=== PATIENT | female | born 1970 | race Two or more races ===

== ENCOUNTER 2016-10-03 08:00 | Inpatient (IN) | payer OTHER ==
[~2016-10-03] VITALS: Ht 167.6 cm; Wt 72.3 kg
[2016-12-02 08:58] VITALS: BMI 26.0
--- NOTE | 2016-12-02 10:50 | PREOPHP ---
DATE OF ADMISSION: 12/03/2016 CHIEF COMPLAINT: Excessive vaginal bleeding and pelvic pain. HISTORY OF PRESENT ILLNESS: This is a 46-year-old female, 3, para 3, who has been complaini ng of excessive bleeding with clots and flooding through her linen and clothing for several months n ow. She was found to have multiple uterine fibroids on abdominal CT. This was confirmed by ultraso und later. She is brought in for a total abdominal hysterectomy under general anesthesia. The proc edure was carefully explained to the patient in the office. The alternatives to this and the benefi ts of the procedure and the risks and possible complications in the way of hemorrhage, infection, pe lvic organ injury during the procedure was discussed in detail. She was allowed to ask questions an d all her questions were answered to her satisfaction. She signed the appropriate surgical informed consent. PAST MEDICAL HISTORY: The patient is diabetic and has been under treatment with poor control. The last A1c was at 6.2%. She denies any cardiovascular disease. Denies hypertension, denies renal dis ease, denies liver disease, denies neurological problems, denies thyroid problems. ALLERGIES: NO KNOWN ALLERGIES. FAMILY HISTORY: Noncontributory. REVIEW OF SYSTEMS: A 12-point review of systems is noncontributory. PHYSICAL EXAMINATION: GENERAL: Well-developed and nourished, in no distress with a height of 5 feet 6 inches and a weight of 157 pounds. BMI is 25. VITAL SIGNS: Showed the temperature to be 98, blood pressure 117/72, respirations are 16 per minute . Pulse is 80/minute, regular. HEENT: Within normal limits. Pupils are PERRLA. NECK: Supple. The thyroid is not palpable. There is no lymphadenopathy. BREASTS: Show no masses or lumps. Nipples are normal. CHEST: Lungs are clear to percussion and auscultation. HEART: Normal sinus rhythm without a murmur. ABDOMEN: Soft without organomegalies or hernias. PELVIC: Normal external genitalia. Vagina is normal. The cervix is normal without lesions. The p atient had conization in the past for a cervical lesion. Bimanual exam: The uterus is enlarged wit h multiple irregular fibroids with size about 16 weeks' . LOWER EXTREMITIES: Within normal limits. NEUROLOGIC: Also normal. IMPRESSION: Multiple uterine fibroids with excessive bleeding and pelvic pain. PLAN: The patient will be admitted tomorrow, 12/03/2016, for a total abdominal hysterectomy under g eneral anesthesia. Dictated By: DOROTHY CHAVIRA/LEE Conf#: [id number] DID#: [id number]
[2016-12-03] VITALS (23 sets, daily range): BP systolic 99–147; BP diastolic 52–94; PULSE 68–162; RESP 14–22; Ht 167.6 cm; Wt 72.3 kg
[2016-12-03] MEDS ORDERED: VASOPRESSIN 20 UNITS INJ ONE (07:01)
[2016-12-03] MEDS ORDERED: ONDANSETRON 4 MG INJ ONE (07:13)
[2016-12-03] MEDS ORDERED: SUCCINYLCHOLINE CHLORIDE 100 MG/5 ML SYG IV ONE (07:13)
[2016-12-03] MEDS ORDERED: PROPOFOL 20 ML ONE (07:13)
[2016-12-03] MEDS ORDERED: ROCURONIUM 50 MG INJ ONE (07:13)
[2016-12-03] MEDS ORDERED: FENTAnyl 50 MCG/ML VIAL ONE (07:13)
[2016-12-03] MEDS ORDERED: CEFAZOLIN 1 GM INJ ONE (07:14)
[2016-12-03] MEDS ORDERED: METOCLOPRAMIDE 10 MG INJ ONE (07:14)
[2016-12-03] MEDS ORDERED: VASOPRESSIN 20 UNITS INJ IV ONE (08:18)
[2016-12-03] MEDS ORDERED: DIPHENHYDRAMINE 50 MG INJ IV PRN (08:30)
[2016-12-03] MEDS ORDERED: HYDROmorphONE (0.2 MG/ML) 10ML SYG IV PRN ×3 (08:30)
[2016-12-03] MEDS ORDERED: FENTAnyl 50 MCG/ML VIAL IV PRN ×2 (08:30)
[2016-12-03] MEDS ORDERED: ONDANSETRON 4 MG INJ IV PRN ×3 (08:30→15:00)
[2016-12-03] MEDS ORDERED: MEPERIDINE 25 MG INJ IV PRN (08:30)
[2016-12-03] MEDS ORDERED: INFLUENZA VIRUS VACCINE 0.5 ML SYG IM* ONE (08:30)
[2016-12-03] MEDS ORDERED: NALOXONE (0.4 MG/ML) INJ IV PRN (08:30)
[2016-12-03] MEDS ORDERED: LACTATED RINGER'S 1,000 ML IV SCH (10:07)
[2016-12-03] MEDS ORDERED: IBUPROFEN 600 MG TAB PO PRN (10:30)
[2016-12-03] MEDS ORDERED: ACETAMINOPHEN 325 MG TAB PO PRN (10:30)
[2016-12-03] MEDS ORDERED: OXYCODONE/ACETAMINOPHEN (5/325) TAB PO PRN ×3 (10:30)
[2016-12-03] MEDS: HYDROmorphONE 0.2 MG/ML PCA IV SCH ×2 (10:36→17:03)
--- NOTE | 2016-12-03 11:42 | OPR ---
DATE OF OPERATION: 12/03/2016 PREOPERATIVE DIAGNOSIS: Multiple large uterine fibroids with excessive bleeding and pelvic pain. POSTOPERATIVE DIAGNOSIS: Multiple large uterine fibroids with excessive bleeding and pelvic pain. Extensive abdominal pelvic adhesions. Large right paraovarian cyst. OPERATION PERFORMED: Exploratory laparotomy, total abdominal hysterectomy, left salpingo-oophorectomy, lysis of extensive adhesions and removal of large right paraovarian cyst. SURGEON: Dorothy Soriano MD BRAKE REPAIRER RAILROAD: Soraya Zuleta MD ANESTHESIA: General. ANESTHESIOLOGIST: Oscar Richardson MD ESTIMATED BLOOD LOSS: 200 mL. COMPLICATIONS: None. SPECIMENS: The uterus, the left tube and ovary and the right paraovarian cyst were sent to pathology. PROCEDURE AND FINDINGS: With the patient under general anesthesia and endotracheal intubation by Dr. Richardson, she was laid on the table in the dorsal recumbent position. The abdomen was prepped with ChloraPrep and the perineum and vagina with Betadine. After 3 minutes, she was draped in the usual sterile fashion for this procedure. A very large irregular uterus was palpable abdominally going all the way up to the umbilicus and beyond, irregularly shaped. It was decided that it was for the best interest of the patient to do a subumbilical midline incision. a vertical incision was done and carried through all layers of the abdomen. Once in the abdomen, there were a lot of adhesions from the omentum to the fibroids of the uterus and to the adnexa. These were lysed with scissors and the cautery carefully. Then, the uterus was taken out of the abdominal cavity with some difficulty given the size. The hysterectomy was started on the right side by using the LigaSure to cauterize and cut the round ligament. The anterior leaf of the broad ligament was then opened. The same was repeated on the contralateral side. The bladder was dissected away from the uterine segment. The left upper pedicle consisting of the round ligament, the uterine ovarian ligament and the tube were then transected with the LigaSure. Good hemostasis was observed. The same was done on the contralateral side. There was a large paraovarian cyst on the right side. This was also removed with the LigaSure intact and sent to pathology. The broad ligament was dissected on both sides. The uterine pedicles were skeletonized. They were held bilaterally with Lily clamps and cut and sutured with 0 Vicryl. This was done twice to order to obtain good hemostasis since the pedicle was very large. Then, the body of the uterus was removed. The cervix was held by long Tamir clamps. It was noticed that the infundibulopelvic ligament on the left side was bleeding in the area previously transected and a small hematoma has formed in the ligament. Then, it was decided for the best interest of the patient, to remove the left tube and ovary. This was done by clamping the IP with a Lily clamp and then removing the adnexa. Two sutures of 0 Vicryl were placed getting good hemostasis. Then, the operation was continued by dissecting away the endopelvic fascia around the cervix. The uterosacral ligaments were clamped with Lily clamps, cut and sutured with 0 Vicryl. The vaginal vault was entered posteriorly and with the Azra scissors, the specimen removed. The cervix looked normal, free of pathology. The vaginal cuff was closed with gfgmfl-[id number] sutures of 0 Vicryl. These were held for future reference and to check bleeders. The bleeders were checked under warm water. There were none. The water was suctioned out. Then, the vaginal vault in the area of surgery was reperitonealized with a continuous stitch of 2-0 chromic catgut. Good hemostasis was observed at all times. All the packing and instruments were removed from the patient's abdomen. The first count of sponges and instruments was correct at this point. The abdomen was closed utilizing a zlqdvrr-fyi-glhrzrs suture of looped 0 PDS. This was reinforced with xdduoa-ij-mykiz sutures of 0 Vicryl. Good closure was obtained. The subcutaneous tissues were approximated with continuous running stitch of double 0 plain catgut. Then the edges of the incision were brought together with Insorb absorbable loulou. A sterile pressure dressing was applied and the patient was taken to recovery room with all vital signs stable. EBL was 200 mL of blood. Needle, sponge and instrument counts at the end of the procedure were correct twice. Dictated By: DOROTHY CHAVIRA/LEE Conf#: [id number] DID#: [id number] CC: SORAYA ZULETA MD;*EndCC* MTDD
[2016-12-03] MEDS: CEFAZOLIN 2 GM/50 ML (PMX) 50 ML IVPB SCH ×2 (14:03→22:15)
[2016-12-03] MEDS ORDERED: KETOROLAC 30 MG INJ IV PRN (17:30)
[2016-12-03] MEDS ORDERED: GLUCAGON 1 MG INJ IM PRN (17:30)
[2016-12-03] MEDS ORDERED: GLUCOSE GEL 15 GRAM TUBE BUCCAL PRN (17:30)
[2016-12-03] MEDS: ACETAMINOPHEN 1000MG/100ML IV 100 ML IVPB SCH ×2 (17:30→23:19)
[2016-12-03] MEDS ORDERED: GLUCOSE GEL 15 GRAM TUBE PO PRN ×2 (17:30)
[2016-12-03] MEDS ORDERED: DEXTROSE 50% 50 ML SYRINGE IV PRN ×2 (17:30)
[2016-12-03] MEDS: SOD CHLORIDE 0.9% 1,000 ML IV SCH (17:30)
[2016-12-03] MEDS: INSULIN ASPART [NOVOLOG] 3 ML PEN SC SCH ×2 (17:45→20:43)
[2016-12-03] MEDS ORDERED: LORAZEPAM 2 MG INJ IV PRN (19:00)
[2016-12-03] MEDS ORDERED: hydrALAzine 20 MG INJ IV PRN (19:00)
--- NOTE | 2016-12-03 19:43 | CONS ---
DATE OF ADMISSION: 12/03/2016 DATE OF CONSULTATION: 12/03/2016 REASON FOR CONSULTATION: Medical management. CONSULTING PHYSICIAN: Dr. Evelin Cosby, internal medicine. REQUESTING PHYSICIAN: Dr. Sloan Soriano, COMMUNICATION CENTER OPERATOR. HISTORY OF PRESENT ILLNESS: This is a 46-year-old female who was brought electively for hysterectomy because of excessive vaginal bleeding and pelvic pain. The patient underwent an exploratory laparotomy with total abdominal hysterectomy, left salpingo-oophorectomy, lysis of extensive adhesions, and removal of a large right sided ovarian cyst on 12/03/2016 with no immediate postoperative complications. The patient was moved to medical/surgical floor for further management. Meanwhile, the patient was noticed to have significant tachycardia with recorded heart rate as high as 162 per minute. Therefore, hospitalist was consulted for medical management. The patient has a prior history of borderline diabetes. As per the COMMUNICATION CENTER OPERATOR's H and P, her latest hemoglobin A1c was 6.2%. At the time of examination, the patient denied any chest pain, dyspnea, or palpitations. She was complaining of feeling hot. The patient verbalized that her pain is well controlled. However, as per nursing, she was very anxious earlier when she arrived from PACU. It is unclear whether the patient's anxiety is contributing to the patient's tachycardia. PAST MEDICAL HISTORY: Prediabetes. PAST SURGICAL HISTORY: Cone biopsy, current exploratory laparotomy with hysterectomy and salpingo-oophorectomy. HOME MEDICATIONS: None. ALLERGIES: NO KNOWN ALLERGIES. SOCIAL HISTORY: The patient lives at home with her partner. Current every day tobacco use. However, the patient verbalized that she skips using tobacco on some days. Approximately 5 to 10 cigarettes per day average. Denies any use of alcohol or illicit drugs. REVIEW OF SYSTEMS: A 12-point of review of systems are negative other than what is mentioned in the history of present illness. PHYSICAL EXAMINATION: VITAL SIGNS: Temperature 98.0, pulse rate 144, respiratory rate 18, blood pressure 140/70, oxygen saturation 98% on 2 liters oxygen via nasal cannula. GENERAL: This is a well-built, well-nourished female patient lying in bed in no apparent distress. HEENT: Head normocephalic and atraumatic. Eyes: Anicteric sclerae. Conjunctivae clear. EARS, NOSE, THROAT: Nasal septum is midline. Oral mucosa is dry. NECK: Supple. JVD noticed. RESPIRATORY: Bilaterally diminished breath sounds. No adventitious breath sounds. No use of accessory muscles of respiration. CARDIOVASCULAR: Regular rate and rhythm. Sinus tachycardia. No obvious murmurs heard. ABDOMEN: Large abdominal wall surgical dressing with slight blood stain in it. GENITOURINARY: The patient has a Mao catheter in place. EXTREMITIES: No cyanosis, no clubbing, no edema. Peripheral pulses are palpable. NEUROLOGIC: The patient is awake, alert, and oriented. Cranial nerves are grossly intact. LABORATORY AND DIAGNOSTIC DATA (From preop visit on 11/26/2016): WBC 5.2, hemoglobin 10.7, hematocrit 34.1, platelet count 299. Sodium 132, potassium 4.3 , chloride 101, carbon dioxide 23, calcium 8.8, glucose 112, BUN 6, creatinine 0.73, GFR 98. 12-lead EKG: Sinus tachycardia. IMPRESSION: This is a 46-year-old female patient who underwent an elective exploratory laparotomy with a total abdominal hysterectomy and left salpingo- oophorectomy who was admitted here who was found to have sinus tachycardia who will be managed medically. ASSESSMENT AND PLAN: 1. Sinus tachycardia. Etiology could be multifactorial, including underlying pain and anxiety Vs from nicotine withdrawal. The patient will be ruled out for any other causes of tachycardia. The patient has no febrile illness. A thyroid function panel will be obtained to evaluate for any underlying hyperthyroidism. A stat hemoglobin and hematocrit will be obtained to evaluate for any underlying acute blood loss. Electrolyte levels will be obtained to evaluate for any electrolyte imbalances. The patient will be provided with adequate pain control. The patient will also be started on anxiolytics for any underlying anxiety. 2. Uterine fibroids with menorrhagia. Status post exploratory laparotomy with total abdominal hysterectomy, left salpingo-oophorectomy, and lysis of extensive adhesions, and removal of large right side ovarian cyst. Postoperative care as per COMMUNICATION CENTER OPERATOR. Encourage early ambulation. Continue incentive spirometry. 3. Prediabetes. The patient will be started on sliding scale insulin. A hemoglobin A1c will be obtained to evaluate the blood glucose control over the past few weeks. 4. Nicotine use. Cessation will be advised. The patient was offered a nicotine patch. However, she refused it. Additional diagnostic and therapeutic orders will be as clinically indicated. The case and management of this patient was fully discussed with Dr. Cosby. Thank you, Dr. Soriano, for allowing us to participate in this patient's care. We will continue to follow the patient along with you. Approximately 40 minutes was spent on the medical consult on this patient. CARIDAD COSBY MD AM/NTS Conf#: [id number] DID#: [id number] CC: SLOAN SORIANO MD;*EndCC* MTDD
[2016-12-03 21:54] LABS: ALBUMIN 3.5 g/dl (3.3-4.9); CHLORIDE 103 mmol/L (97-110)
[2016-12-03 21:55] LABS: POTASSIUM 4.4 mmol/L (3.5-5.1); SODIUM 138 mmol/L (135-144)
[2016-12-03 21:57] LABS: ALBUMIN/GLOBULIN RATIO 1.09; ALKALINE PHOSPHATASE 61 IU/L (42-121); ANION GAP 16 (8-16); ASPARTATE AMINO TRANSFERASE 22 IU/L (15-46); BILIRUBIN,INDIRECT 0.3 mg/dl (0-1.1); BILIRUBIN,TOTAL 0.3 mg/dl (0.2-1.3); BLOOD UREA NITROGEN 9 mg/dl (7-20); CARBON DIOXIDE 23 mmol/L (21-31); CREATININE 0.66 mg/dl (0.44-1.00); TOTAL PROTEIN 6.7 g/dl (6.1-8.1)
[2016-12-03 21:58] LABS: ALANINE AMINOTRANSFERASE 22 IU/L (13-69); CALCIUM 7.9 mg/dl (8.4-10.2); CREATINE KINASE 251 IU/L (23-200); GLUCOSE 95 mg/dl (70-220); MAGNESIUM 1.7 mg/dl (1.7-2.5)
[2016-12-03 22:07] LABS: CK-MB 0.75 ng/ml (0.0-2.4)
[2016-12-03 22:15] LABS: TROPONIN-I < 0.012 ng/ml (0.00-0.12)
[2016-12-03 23:26] LABS: HEMATOCRIT 31.7 % (37.0-47.0); HEMOGLOBIN 10.1 g/dl (12.0-16.0)
[2016-12-04] MEDS: ACCUCHECK XX SCH (01:39)
[2016-12-04] MEDS: SOD CHLORIDE 0.9% 1,000 ML IV SCH ×3 (02:06→17:30)
[2016-12-04] MEDS: ACETAMINOPHEN 1000MG/100ML IV 100 ML IVPB SCH ×4 (04:44→22:22)
[2016-12-04] MEDS: CEFAZOLIN 2 GM/50 ML (PMX) 50 ML IVPB SCH (05:48)
[2016-12-04 07:22] LABS: ADD UMIC YES; URINE BILIRUBIN (Dip) NEGATIVE (NEGATIVE); URINE BLOOD (Dip) TRACE (NEGATIVE); URINE COLOR LT. YELLOW (YELLOW); URINE GLUCOSE (Dip) NEGATIVE (NEGATIVE); URINE KETONES (Dip) NEGATIVE (NEGATIVE); URINE LEUKOCYTE ESTERASE (Dip) NEGATIVE (NEGATIVE); URINE NITRITE (Dip) NEGATIVE (NEGATIVE); URINE TOTAL PROTEIN (Dip) NEGATIVE (NEGATIVE); URINE UROBILINOGEN (Dip) 0.2 E.U./dL (0.1-1.0)
[2016-12-04 07:25] LABS: BASOPHILS % 0.6 % (0.0-2.0); EOSINOPHILS % 0.4 % (0.0-7.0); HEMATOCRIT 30.7 % (37.0-47.0); HEMOGLOBIN 10.1 g/dl (12.0-16.0); LYMPHOCYTES % 12.9 % (15.0-51.0); MEAN CORPUSCULAR HEMOGLOBIN 26.3 pg (29.0-33.0); MEAN CORPUSCULAR HGB CONC 33.1 g/dl (32.0-37.0); MEAN CORPUSCULAR VOLUME 79.4 fl (82.0-101.0); MEAN PLATELET VOLUME 8.7 fl (7.4-10.4); MONOCYTE # 0.6 10^3/ul (0.3-0.9); MONOCYTES % 8.1 % (0.0-11.0); NEUTROPHIL # 6.2 10^3/ul (1.6-7.5); PLATELET COUNT 262 10^3/UL (140-440); RED BLOOD COUNT 3.86 10^6/ul (4.20-5.40); RED CELL DISTRIBUTION WIDTH 17.5 % (11.5-14.5); UNCORRECTED WBC 7.9 10^3/ul (4.8-10.8); WHITE BLOOD COUNT 7.9 10^3/ul (4.8-10.8)
[2016-12-04 07:31] LABS: CHOL/HDL RATIO 3.5 RATIO; CHOLESTEROL 142 mg/dl (100-200); CK-MB 0.85 ng/ml (0.0-2.4); CREATINE KINASE 309 IU/L (23-200); HDL CHOLESTEROL 40 mg/dl (34-88); MAGNESIUM 1.8 mg/dl (1.7-2.5); PHOSPHORUS 3.2 mg/dl (2.5-4.9); TRIGLYCERIDES 89 mg/dl (0-149)
[2016-12-04 07:33] LABS: CALCIUM 8.4 mg/dl (8.4-10.2); CREATININE 0.59 mg/dl (0.44-1.00); POTASSIUM 4.6 mmol/L (3.5-5.1)
[2016-12-04 07:35] LABS: CONDITION 1; LH ANALYZER COMMENTS 1; TROPONIN-I < 0.012 ng/ml (0.00-0.12)
[2016-12-04 07:49] LABS: BACTERIA,URINE RARE
[2016-12-04] MEDS: INSULIN ASPART [NOVOLOG] 3 ML PEN SC SCH ×4 (07:50→20:57)
--- NOTE | 2016-12-04 08:01 | PN ---
Date/Time of Note Date/Time of Note DATE: 12/04/16 TIME: 07:59 Assessment/Plan VTE Prophylaxis VTE Prophylaxis Intervention: ambulation, anti-embolic stocking Lines/Catheters IV Catheter Type (from Nrsg): Peripheral IV Urinary Cath still in place: Yes Assessment/Plan Chief Complaint/Hosp Course Good pain control,eager to get up Problems: Assessment/Plan Still needs iv meds for pain.Encourage to get up and walk. Abdomen soft, dressing dry. Cont'd Hospitalization Reason: Needs iv pain meds. Exam/Review of Systems Vital Signs Vitals Vital Signs Date Time Temp Pulse Resp B/P Pulse Ox O2 Delivery O2 Flow Rate FiO2 12/04/16 01:00 18 12/03/16 20:43 Nasal Cannula 2.0 12/03/16 20:17 98.3 134 99/65 98 Intake and Output 12/03/16 12/03/16 12/04/16 15:00 23:00 07:00 Intake Total 1100 ml 850 ml 2246 ml Output Total 320 ml 600 ml 1500 ml Balance 780 ml 250 ml 746 ml Results Result Diagram: 12/04/1631 12/04/1631 Results 24 hrs Laboratory Tests Test 12/03/16 10:53 12/03/16 17:07 12/03/16 20:41 12/03/16 21:35 Bedside Glucose 112 120 126 Alanine Aminotransferase (ALT/SGPT) 22 Albumin 3.5 Albumin/Globulin Ratio 1.09 Alkaline Phosphatase 61 Anion Gap 16 Aspartate Amino Transf (AST/SGOT) 22 Blood Urea Nitrogen 9 Calcium Level 7.9 L Carbon Dioxide Level 23 Chloride Level 103 Creatine Kinase 251 H Creatine Kinase Index 0.3 Creatinine 0.66 Creatinine Kinase MB (Mass) 0.75 Direct Bilirubin 0.00 Globulin 3.20 Glucose Level 95 Hematocrit 31.7 L Hemoglobin 10.1 L Hemoglobin A1c 5.9 Indirect Bilirubin 0.3 Magnesium Level 1.7 Potassium Level 4.4 Sodium Level 138 Total Bilirubin 0.3 Total Protein 6.7 Troponin I < 0.012 Test 12/04/16 03:48 12/04/16 06:31 Urine Bacteria RARE Urine Bilirubin NEGATIVE Urine Clarity CLEAR Urine Color LT. YELLOW Urine Epithelial Cells RARE Urine Glucose NEGATIVE Urine Hemoglobin TRACE Urine Ketones NEGATIVE Urine Leukocyte Esterase NEGATIVE Urine Microscopic RBC 5-10 Urine Microscopic WBC 0-2 Urine Nitrite NEGATIVE Urine Specific Hope 1.010 Urine Total Protein NEGATIVE Urine Urobilinogen 0.2 E.U./dL Urine pH 7.0 Anion Gap 13 Basophils # 0.0 Basophils % 0.6 Blood Morphology Comment Blood Urea Nitrogen 6 L Calcium Level 8.4 Carbon Dioxide Level 26 Chloride Level 102 Cholesterol Level 142 Cholesterol/HDL Ratio 3.5 Creatine Kinase 309 H Creatine Kinase Index 0.3 Creatinine 0.59 Creatinine Kinase MB (Mass) 0.85 Eosinophils # 0.0 Eosinophils % 0.4 Glucose Level 116 HDL Cholesterol 40 Hematocrit 30.7 L Hemoglobin 10.1 L LDL Cholesterol, Calculated 84 Lymphocytes # 1.0 Lymphocytes % 12.9 L Magnesium Level 1.8 Mean Corpuscular Hemoglobin 26.3 L Mean Corpuscular Hemoglobin Concent 33.1 Mean Corpuscular Volume 79.4 L Mean Platelet Volume 8.7 Monocytes # 0.6 Monocytes % 8.1 Neutrophils # 6.2 Neutrophils % 78.0 H Nucleated Red Blood Cells # 0.0 Nucleated Red Blood Cells % 0.0 Phosphorus Level 3.2 Platelet Count 262 Potassium Level 4.6 Red Blood Count 3.86 L Red Cell Distribution Width 17.5 H Sodium Level 136 Triglycerides Level 89 Troponin I < 0.012 White Blood Count 7.9 Medications Medications Current Medications Naloxone HCl (Narcan) 0.2 mg PRN PRN IV DECREASED REPIRATORY RATE; Start at 08:30 Hydromorphone HCl (Dilaudid GASKET MAKER) 0.2 mg Q4PCA IV Last administered on 17:03; Admin Dose 0.2 MG; Start 12/03/16 at 08:30 Oxycodone/ Acetaminophen (Percocet (5/ 325)) 1 tab Q4H PRN PO PAIN LEVEL 1-5; Start 12/04/16 at 17:00 Oxycodone/ Acetaminophen (Percocet (5/ 325)) 2 tab Q4H PRN PO PAIN LEVEL 6-10; Start 12/04/16 at 17:00 Ondansetron HCl (Zofran Inj) 4 mg Q6H PRN IV NAUSEA AND/OR VOMITING; Start at 15:00 Diphenhydramine HCl (Benadryl) 25 mg Q6H PRN IV ITCHING Last administered on 10:30; Admin Dose 50 MG; Start 12/03/16 at 08:30 Miscellaneous Information 1. Discontinue GASKET MAKER... GASKET MAKER IV ; Start 12/03/16 at 08:30 Acetaminophen (Tylenol Tab) 650 mg Q4H PRN PO PAIN LEVEL 1-5; Start 12/03/16 at 10:30; Status Future Hold Ibuprofen (Motrin) 600 mg Q8H PRN PO PAIN AND OR ELEVATED TEMP; Start 12/03/16 at 10:30 Influenza Virus Vaccine 0.5 ml 0.5 ml ONCE ONCE IM* ; Start 12/04/16 at 09:00; Stop 12/04/16 at 09:01 Acetaminophen (Ofirmev 1000mg/ 100ml Iv) 100 ml @ 400 mls/hr Q6H IVPB Last administered on 12/04/16 04:44; Admin Dose 400 MLS/HR; Start 12/03/16 at 17:00 Ketorolac Tromethamine 30 mg 30 mg Q6H PRN IV PAIN; Start 12/03/16 at 17:30; Stop 12/06/16 at 17:29 Sodium Chloride (NS) 1,000 ml @ 125 mls/hr Q8H IV Last administered on 02:06; Admin Dose 125 MLS/HR; Start 12/03/16 at 17:30 Diagnostic Test (Pha) (Accucheck) 1 ea 02 XX ; Start 12/04/16 at 02:00 Miscellaneous Information 1 ea NOTE XX ; Start 12/03/16 at 17:30 Glucose (Glutose) 15 gm Q15M PRN PO DECREASED GLUCOSE; Start 12/03/16 at 17:30 Glucose (Glutose) 22.5 gm Q15M PRN PO DECREASED GLUCOSE; Start 12/03/16 at 17: 30 Dextrose (D50w Syringe) 25 ml Q15M PRN IV DECREASED GLUCOSE; Start 12/03/16 at 17:30 Dextrose (D50w Syringe) 50 ml Q15M PRN IV DECREASED GLUCOSE; Start 12/03/16 at 17:30 Glucagon (Glucagen) 1 mg Q15M PRN IM DECREASED GLUCOSE; Start 12/03/16 at 17:30 Glucose (Glutose) 15 gm Q15M PRN BUCCAL DECREASED GLUCOSE; Start 12/03/16 at 17 :30 Lorazepam (Ativan) 1 mg Q6H PRN IV Anxiety Last administered on 12/04/16 05:49 ; Admin Dose 1 MG; Start 12/03/16 at 19:00 Hydralazine HCl (Apresoline) 10 mg Q6H PRN IV SbP>160; Start 12/03/16 at 19:00 DOROTHY LOAIZA MD Dec 04, 2016 08:01
[2016-12-04 08:17] VITALS: BP 127/75; RESP 18
[2016-12-04] MEDS ORDERED: INFLUENZA VIRUS VACCINE 0.5 ML (DISPENSING) IM* ONE (09:00)
--- NOTE | 2016-12-04 11:11 | PN ---
DATE: 12/04/2016 SUBJECTIVE DATA: The patient has been anxious in the morning and has been asking to go out of the hospital for smoking. The patient refused nicotine patch last night. Pain controlled with opioids. OBJECTIVE DATA: VITAL SIGNS: Temperature 97.8, pulse 74, respiratory rate 18, blood pressure 127/70, oxygen saturation 90% on room air. GENERAL: This is a well-built, well-nourished female patient lying in bed in no apparent distress. HEENT: Head normocephalic and atraumatic. Eyes: Anicteric sclerae. Conjunctivae clear. ENT: Nasal septum is midline. Oral mucosa is moist. NECK: Supple. No JVD noticed. RESPIRATORY: Bilaterally clear to auscultation. No adventitious breath sounds. No use of accessory muscles of respiration. CARDIAC: Regular rate and rhythm. No murmurs. ABDOMEN: Has abdominal wall dressing. GENITOURINARY: Deferred. EXTREMITIES: No cyanosis, no clubbing, no edema. Peripheral pulses palpable. NEUROLOGIC: The patient is awake, alert and oriented. Cranial nerves are grossly intact. LABORATORY AND DIAGNOSTIC DATA: WBC 7.9, hemoglobin 10.1, hematocrit 30.7, platelet count 262. Sodium 136, potassium 4.6, chloride 102, carbon dioxide 26 , anion gap 13, BUN 6, creatinine 0.59, glucose 116, calcium 8.4, phosphorus 3.2, magnesium 1.8. ASSESSMENT AND PLAN: 1. Sinus tachycardia. Resolved. Most probably could have been multifactorial in origin from underlying anxiety and postoperative pain. Thyroid panel within normal limits. The patient's nicotine withdrawal could also be causing the sinus tachycardia. However, the patient refuses nicotine patch. 2. Uterine fibroids with menorrhagia. Status post exploratory laparotomy and total abdominal hysterectomy, left salpingo-oophorectomy and lysis of extensive adhesions along with removal of a large right-sided ovarian cyst on 12/03/2016. Continue postoperative care as per FORENSICS TEAM DIRECTOR. 3. Pre-diabetes. Hemoglobin A1c 5.9. Continue sliding scale insulin. 4. Microcytic, hypochromic anemia. Etiology unclear. Will obtain an iron panel. Will monitor H and H closely. 5. Fluid, electrolytes and nutrition. Continue carbohydrate controlled diet. 6. Deep venous thrombosis prophylaxis with bilateral sequential compression devices. 7. Gastrointestinal prophylaxis. Histamine-2 receptor blockers. 8. PLAN: Continue postoperative care as per FORENSICS TEAM DIRECTOR. Obtain iron panel. We will continue to follow the patient along with you. Thank you for the consult. The case was discussed with Dr. Cosby. CARIDAD COSBY MD, AM/LEE Conf#: [id number] DID#: [id number] MTDD
[2016-12-04 11:14] LABS: IRON 31 ug/dl (35-150)
[2016-12-04 11:24] LABS: TOTAL IRON BINDING CAPACITY 378 ug/dl (241-421)
[2016-12-04] MEDS: HYDROmorphONE 0.2 MG/ML PCA IV SCH (11:34)
[2016-12-04] MEDS ORDERED: OXYCODONE/ACETAMINOPHEN (5/325) TAB PO PRN ×2 (17:00)
[2016-12-04] MEDS: FAMOTIDINE 20 MG TAB PO SCH (20:56)
[2016-12-04 22:00] VITALS: BP 122/74; RESP 20
[2016-12-05] MEDS: SOD CHLORIDE 0.9% 1,000 ML IV SCH ×2 (01:30→08:33)
[2016-12-05] MEDS: ACCUCHECK XX SCH (02:00)
[2016-12-05] MEDS: ACETAMINOPHEN 1000MG/100ML IV 100 ML IVPB SCH ×2 (05:07→09:44)
[2016-12-05 08:26] VITALS: BP 141/87; RESP 18
[2016-12-05] MEDS: FAMOTIDINE 20 MG TAB PO SCH (08:34)
--- NOTE | 2016-12-05 08:39 | PD.PPDC ---
BEHAVIORAL HEALTH THERAPIST Discharge Instruction Diagnosis Final Diagnosis: Multiple uterine bleeding with excessive bleeding and pelvic pain.Anemia. Condition Patient Condition: Good Diet Diet: Special Diet Special Diet: 2200 blessing ADA Activity/Restrictions Activity: Normal Activity May Shower Restrictions: No Exercising No Lifting No Sexual Activity No [place] No Tampons, douche Wound/Drain Care Instructions Wound/Drain Care Instructions: Remove Steri Strips in 1 week Keep clean and dry Follow-up Follow-up with Physician: 1, Week/Weeks Return to clinic for CARDIAC CATH LAB RADIOLOGY TECHNOLOGIST Instructions: Fever greater than 101 Worsening abdominal pain Excessive Vaginal Bleeding Unable to tolerate diet Surgical Instructions: Incisional Drainage Incisional Redness DOROTHY LOAIZA MD Dec 05, 2016 08:39
[2016-12-05] MEDS: INSULIN ASPART [NOVOLOG] 3 ML PEN SC SCH ×2 (08:40→11:40)
--- NOTE | 2016-12-05 09:51 | PN ---
Date/Time of Note Date/Time of Note DATE: 12/05/16 TIME: 09:50 Assessment/Plan VTE Prophylaxis VTE Prophylaxis Intervention: SCD's Lines/Catheters IV Catheter Type (from [facility]): Peripheral IV Urinary Cath still in place: No Assessment/Plan Chief Complaint/Hosp Course 1. Sinus tachycardia. Resolved. Most probably could have been multifactorial in origin from underlying anxiety and postoperative pain. Thyroid panel within normal limits. The patient's nicotine withdrawal could also be causing the sinus tachycardia. However, the patient refuses nicotine patch. 2. Uterine fibroids with menorrhagia. Status post exploratory laparotomy and total abdominal hysterectomy, left salpingo-oophorectomy and lysis of extensive adhesions along with removal of a large right-sided ovarian cyst on 12/03/2016. Continue postoperative care as per [employer]ER[employer] WORKER. 3. Pre-diabetes. Hemoglobin A1c 5.9. Ideally needs to be on metformin 500 mg p.o. twice daily upon discharge. 4. Microcytic, hypochromic anemia. Underlying iron deficiency. Recommend iron supplements. 5. Fluid, electrolytes and nutrition. Continue carbohydrate controlled diet. 6. Deep venous thrombosis prophylaxis with bilateral sequential compression devices. 7. Gastrointestinal prophylaxis. Histamine-2 receptor blockers. 8. PLAN: Continue postoperative care as per CER[employer] WORKER. The patient is medically stable to be discharged. Thank you for the consult. The case was discussed with Dr. Curran. Problems: Subjective 24 Hr Interval Summary Free Text/Dictation Denies any complaints. The patient to be discharged today. Exam/Review of Systems Vital Signs Vitals Vital Signs Date Time Temp Pulse Resp B/P Pulse Ox O2 Delivery O2 Flow Rate FiO2 12/05/16 08:26 98.2 96 18 141/87 98 12/03/16 20:43 Nasal Cannula 2.0 Intake and Output 12/04/16 12/04/16 12/05/16 15:00 23:00 07:00 Intake Total 1400 ml 1255 ml Balance 1400 ml 1255 ml Exam GENERAL: This is a well-built, well-nourished female patient lying in bed in no apparent distress. HEENT: Head normocephalic and atraumatic. Eyes: Anicteric sclerae. Conjunctivae clear. ENT: Nasal septum is midline. Oral mucosa is moist. NECK: Supple. No JVD noticed. RESPIRATORY: Bilaterally clear to auscultation. No adventitious breath sounds. No use of accessory muscles of respiration. CARDIAC: Regular rate and rhythm. No murmurs. ABDOMEN: Has abdominal wall dressing. GENITOURINARY: Deferred. EXTREMITIES: No cyanosis, no clubbing, no edema. Peripheral pulses palpable. NEUROLOGIC: The patient is awake, alert and oriented. Cranial nerves are grossly intact. Results Result Diagram: 12/04/16 0631 12/04/16 0631 Results 24 hrs Laboratory Tests Test 12/04/16 11:30 12/04/16 16:50 12/04/16 20:53 12/05/16 08:09 Bedside Glucose 89 103 141 143 Medications Medications Current Medications Naloxone HCl (Narcan) 0.2 mg PRN PRN IV DECREASED REPIRATORY RATE; Start at 08:30 Hydromorphone HCl (Dilaudid TOOL CRIB CLERK) 0.2 mg Q4PCA IV Last administered on 11:34; Admin Dose 0.2 MG; Start 12/03/16 at 08:30 Oxycodone/ Acetaminophen (Percocet (5/ 325)) 1 tab Q4H PRN PO PAIN LEVEL 1-5; Start 12/04/16 at 17:00 Oxycodone/ Acetaminophen (Percocet (5/ 325)) 2 tab Q4H PRN PO PAIN LEVEL 6-10; Start 12/04/16 at 17:00 Ondansetron HCl (Zofran Inj) 4 mg Q6H PRN IV NAUSEA AND/OR VOMITING; Start at 15:00 Diphenhydramine HCl (Benadryl) 25 mg Q6H PRN IV ITCHING Last administered on 10:30; Admin Dose 50 MG; Start 12/03/16 at 08:30 Miscellaneous Information 1. Discontinue TOOL CRIB CLERK... TOOL CRIB CLERK IV ; Start 12/03/16 at 08:30 Acetaminophen (Tylenol Tab) 650 mg Q4H PRN PO PAIN LEVEL 1-5; Start 12/03/16 at 10:30; Status Future Hold Ibuprofen 600 mg 600 mg Q8H PRN PO PAIN AND OR ELEVATED TEMP; Start 12/03/16 at 10:30 Acetaminophen (Ofirmev 1000mg/ 100ml Iv) 100 ml @ 400 mls/hr Q6H IVPB Last administered on 12/05/16 05:07; Admin Dose 400 MLS/HR; Start 12/03/16 at 17:00 Ketorolac Tromethamine 30 mg 30 mg Q6H PRN IV PAIN; Start 12/03/16 at 17:30; Stop 12/06/16 at 17:29 Sodium Chloride (NS) 1,000 ml @ 125 mls/hr Q8H IV Last administered on 16:53; Admin Dose 125 MLS/HR; Start 12/03/16 at 17:30 Diagnostic Test (Pha) (Accucheck) 1 ea 02 XX ; Start 12/04/16 at 02:00 Miscellaneous Information 1 ea NOTE XX ; Start 12/03/16 at 17:30 Glucose (Glutose) 15 gm Q15M PRN PO DECREASED GLUCOSE; Start 12/03/16 at 17:30 Glucose (Glutose) 22.5 gm Q15M PRN PO DECREASED GLUCOSE; Start 12/03/16 at 17: 30 Dextrose (D50w Syringe) 25 ml Q15M PRN IV DECREASED GLUCOSE; Start 12/03/16 at 17:30 Dextrose (D50w Syringe) 50 ml Q15M PRN IV DECREASED GLUCOSE; Start 12/03/16 at 17:30 Glucagon (Glucagen) 1 mg Q15M PRN IM DECREASED GLUCOSE; Start 12/03/16 at 17:30 Glucose (Glutose) 15 gm Q15M PRN BUCCAL DECREASED GLUCOSE; Start 12/03/16 at 17 :30 Lorazepam (Ativan) 1 mg Q6H PRN IV Anxiety Last administered on 12/04/16 05:49 ; Admin Dose 1 MG; Start 12/03/16 at 19:00 Hydralazine HCl (Apresoline) 10 mg Q6H PRN IV SbP>160; Start 12/03/16 at 19:00 Famotidine (Pepcid) 20 mg BID PO Last administered on 12/05/16 08:34; Admin Dose 20 MG; Start 12/04/16 at 21:00 CARIDAD KNOWLES NP Dec 05, 2016 09:51
--- NOTE | 2016-12-06 06:42 | DS ---
DATE OF ADMISSION: 12/03/2016 DATE OF DISCHARGE: 12/05/2016 FINAL DIAGNOSES: 1. Excessive vaginal bleeding due to multiple large uterine fibroids. 2. Anemia. 3. Diabetes type 2. SUMMARY: This is a 46-year-old female, 3, para 3, who has been complaining of bleeding and pelvic pain for a long period of time. She was found to have multiple large the uterine fibroids. She underwent a total abdominal hysterectomy with a left salpingo-oophorectomy and removal of a larg e paratubal cyst on the right side. She tolerated the procedure well. Her type 2 diabetes was not controlled and Dr. Rodriguez was consulted for handling of the diabetes. The patient had a total of we ll controlled 48 hours at the hospital. She is doing well this morning, continued to pass gases. T he dressing was removed and the incision is healing well. She is encouraged to ambulate to prevent DVT. She had been doing so yesterday. She is discharged with written instructions for activity and diet. She was given a prescription for Percocet to use 1 or 2 every 6 hours p.r.n. pain. She was asked to make an appointment to follow up in the office in 1 week. She is discharged in good condit ion on a 2200 calorie ADA diabetic diet. Dictated By: DOROTHY LOAIZA MD CR/NTS Conf#: [id number] DID#: [id number] CC: ASHISH MONTGOMERY MD; CARIDAD RODRIGUEZ BELT WEAVER;*End*
--- NOTE | 2016-12-07 14:00 | RADRPT ---
Vent Rate: 122 bpm RR Interval: 0 msec DE Interval: 152 msec QRS Duration: 70 msec QT Interval: 320 msec QTC Interval: 456 msec P-R-T [place]: 60 - 59 - 32 degrees Sinus tachycardia Otherwise normal ECG Electronically Signed By: Oscar Sánchez [id number]
== END 2016-12-05 15:00 | disposition home or self-care (01) | DRG 743 ==
LOC: EDSTATUS 10-24 08:00 → REC 12-03 05:51 → MS1 12-03 11:12
PROVIDERS: ADMIT Specialist; ATTEND Specialist
PROC: 0UTC0ZZ Resection of Cervix, Open Approach (ICD-10-PCS; 2016-12-03)
PROC: 0UT60ZZ Resection of Left Fallopian Tube, Open Approach (ICD-10-PCS; 2016-12-03)
PROC: 0UT10ZZ Resection of Left Ovary, Open Approach (ICD-10-PCS; 2016-12-03)
PROC: 0UB00ZZ Excision of Right Ovary, Open Approach (ICD-10-PCS; 2016-12-03)
PROC: 0UT90ZZ Resection of Uterus, Open Approach (ICD-10-PCS; principal; 2016-12-03 07:30)
DX: D25.9 Leiomyoma of uterus, unspecified (principal); D50.9 Iron deficiency anemia, unspecified; N83.201 Unspecified ovarian cyst, right side; R73.03 Prediabetes; R00.0 Tachycardia, unspecified; Z72.0 Tobacco use
CPT/HCPCS: 80048; 80053; 80061; 81001; 81003; 82550; 82553; 82728; 82962; 83036; 83540; 83735; 84100; 84439; 84443; 84484; 84703; 85014; 85018; 85025; 86850; 86900; 86901; 87086; 88307; 90686; 93005; J0131; J0330; J0690; J1170; J1200; J1815; J2060; J2175; J2405; J2765; J3010; J7030; J7120

== ENCOUNTER 2018-05-06 04:37 | Emergency (ER) | END 2018-05-06 08:20 | disposition home or self-care (01) ==